=== PATIENT | female | born 1985 | race Caucasian/White ===

== ENCOUNTER 2024-06-14 06:15 | Inpatient (IN) ==
[~2024-06-14 06:15] MED LIST: KETAMINE HCL ONE
[2024-06-14] MEDS: D5 1/2 NS 1,000 ML 1,000 ML IV SCH ×2 (07:00→11:23)
[2024-06-14] MEDS: NOZIN NASAL SANITIZER TP ONE (07:00)
[2024-06-14 07:05] VITALS: BMI 32.5
[2024-06-14] MEDS: DILAUDID INJ ONE (07:27)
[2024-06-14] MEDS: BETADINE SOLN ONE (07:27)
[2024-06-14] MEDS: PRECEDEX INJ VIAL ONE (07:27)
[2024-06-14] MEDS: PEPCID 20 MG VIAL ONE (07:27)
[2024-06-14] MEDS: FENTANYL VIAL INJ 100 mcg ONE (07:27)
[2024-06-14] MEDS: OFIRMEV IV 1000 MG VIAL 1,000 MG/100 ML VIAL IV ONE (07:27)
[2024-06-14] MEDS: MARCAINE SPINAL ONE (07:27)
[2024-06-14] MEDS: REGLAN INJ 10 MG VIAL ONE (07:27)
[2024-06-14] MEDS: XYLOCAINE 2 % (PLAIN) ONE (07:27)
[2024-06-14] MEDS: VERSED ONE (07:27)
[2024-06-14] MEDS: BENADRYL INJ 50 MG VIAL ONE (07:27)
[2024-06-14] MEDS: ZOFRAN INJ 4 MG VIAL ONE (07:27)
[2024-06-14] MEDS: DIPRIVAN VIAL 40 ML ONE ×2 (07:27→08:44)
[2024-06-14] MEDS: DECADRON INJ ONE (07:27)
[2024-06-14] MEDS: NS 100 ML IV 100 ML ONE (07:51)
[2024-06-14] MEDS: ANCEF VIAL 1 GRAM IVP ONE (07:51)
[2024-06-14] MEDS: LIDOCAINE 2%-EPI 1:200,000 ONE (07:58)
[2024-06-14] MEDS: ProvayBLUE 0.5% ONE (08:21)
[2024-06-14] MEDS: LR 1,000 ML IV 1,000 ML IV ONE ×2 (08:36→10:17)
[2024-06-14] MEDS: EPHEDRINE SULFATE INJ ONE (09:04)
[2024-06-14] MEDS ORDERED: BARHEMSYS INJ IVP PRN (09:11)
[2024-06-14] MEDS ORDERED: BENADRYL INJ 50 MG VIAL IVP PRN (09:11)
[2024-06-14] MEDS ORDERED: DILAUDID INJ IVP PRN (09:11)
[2024-06-14] MEDS: NEO-SYNEPHRINE INJ ONE (09:29)
[2024-06-14] MEDS: DIPRIVAN VIAL 20 ML ONE (09:43)
[2024-06-14] MEDS ORDERED: PERCOCET TAB 5/325 MG PO PRN (09:48)
[2024-06-14] MEDS ORDERED: NARCAN INJ IVP PRN ×2 (09:48→13:15)
[2024-06-14] MEDS ORDERED: TORADOL 30 MG VIAL IVP PRN (09:48)
[2024-06-14] MEDS: TORADOL 30 MG VIAL IVP PRN (12:20)
[2024-06-14] MEDS ORDERED: MORPHINE SULFATE PCA 30 MG IVP PRN (13:15)
[2024-06-14] MEDS: ZOFRAN INJ 4 MG VIAL IVP PRN (14:53)
[2024-06-15 05:10] LABS: BASOPHILS # (AUTO) 0.1 X10^3/uL (0.0-0.1); BASOPHILS % (AUTO) 0.6 % (0.2-1.0); HEMATOCRIT 27.7 % (36.0-47.0); HEMOGLOBIN 9.5 g/dL (12.0-16.0); LYMPHOCYTES # (AUTO) 1.6 X10^3/uL (1.3-2.9); LYMPHOCYTES % (AUTO) 14.5 % (21.0-51.0); MEAN CORPUSCULAR HEMOGLOBIN 29.2 pg (27.0-34.0); MEAN CORPUSCULAR HGB CONC 34.5 g/dL (33.0-35.0); MEAN CORPUSCULAR VOLUME 84.6 fL (80.0-100.0); MEAN PLATELET VOLUME 9.9 fL (7.4-11.0); MONOCYTES # (AUTO) 0.9 x10^3/uL (0.3-0.8); MONOCYTES % (AUTO) 8.4 % (0.0-13.0); NEUTROPHILS # (AUTO) 8.2 x10^3/uL (2.2-4.8); NEUTROPHILS % (AUTO) 76.5 % (42.0-75.0); PLATELET COUNT 166 X10^3/uL (150.0-450.0); RED BLOOD COUNT 3.27 X10^6/uL (3.5-5.4); RED CELL DISTRIBUTION WIDTH 13.5 % (11.6-16.5); WHITE BLOOD COUNT 10.7 X10^3/uL (3.6-10.0)
[2024-06-15 05:20] LABS: BLOOD UREA NITROGEN 4 mg/dL (7-18); CALCIUM 8.1 mg/dL (8.5-10.1); CARBON DIOXIDE 27.1 mmol/L (21-32); CHLORIDE 104 mmol/L (98-107); COR NA(FOR HYPERGLY) 138 mmol/L (136-145); CREATININE 0.74 mg/dL (0.55-1.02); GLUCOSE 145 mg/dL (65-99); POTASSIUM 3.6 mmol/L (3.5-5.1); SODIUM 137 mmol/L (136-145); eGFR NON BLACK RACES > 60 (>60)
[2024-06-15] MEDS: COLACE CAP 100 MG PO SCH (08:23)
[2024-06-15] MEDS: K-DUR TAB 20 MEQ PO SCH (08:24)
[2024-06-15] MEDS: MOTRIN TAB 800 MG PO PRN (09:17)
[2024-06-15] MEDS: BACTROBAN TOPICAL OINT TOP SCH (14:18)
[2024-06-15] MEDS: PERCOCET TAB 5/325 MG PO PRN (18:06)
[2024-06-15] MEDS: CONSULT PHARMACY - POTASSIUM & MAGNESIUM XX SCH (21:49)
[2024-06-16] MEDS: PHENERGAN TAB 25 MG PO PRN (00:10)
[2024-06-16] MEDS: BENADRYL INJ 50 MG VIAL IVP PRN (01:29)
[2024-06-16 05:02] VITALS: O2SAT 97
[2024-06-16 08:30] VITALS: BP 119/59; PULSE 68; RESP 18; TEMP 98.4
== END 2024-06-16 09:10 | disposition home or self-care (01) | DRG 743 ==
LOC: MED/SURG 06:15
PROVIDERS: ADMIT Specialist; ATTEND Specialist
DX: K66.0 Peritoneal adhesions (postprocedural) (postinfection); N94.4 Primary dysmenorrhea; R11.2 Nausea with vomiting, unspecified; R10.2 Pelvic and perineal pain; N92.0 Excessive and frequent menstruation with regular cycle; N92.5 Other specified irregular menstruation